=== PATIENT | female | born 1995 ===

== ENCOUNTER → 2019-10-17 | Outpatient (CLI) | payer OTHER | END | disposition home or self-care (01) | LOC: LAB 16:45 → LAB SHORT 16:45 | DX: N91.2 Amenorrhea, unspecified (principal) | CPT/HCPCS: 84702 ==

== ENCOUNTER → 2020-12-04 | Outpatient (CLI) | payer OTHER | END | disposition home or self-care (01) | LOC: LAB 17:40 → LAB SHORT 17:40 | DX: J02.9 Acute pharyngitis, unspecified (principal) | CPT/HCPCS: 87081; 87147 ==

== ENCOUNTER → 2023-04-21 | Outpatient (CLI) | payer OTHER | LOC: LAB SHORT 18:14 | DX: R10.9 Unspecified abdominal pain (principal) | CPT/HCPCS: 84702 ==

== ENCOUNTER 2023-11-30 08:25 | Inpatient (IN) | payer OTHER ==
[2023-11-30] VITALS (31 sets, daily range): BP systolic 91–136; BP diastolic 50–91
[~2023-11-30] VITALS: Ht 185.4 cm; Wt 104.0 kg
[2023-11-30] MEDS ORDERED: Carboprost Tromethamine 250 MCG/ML 1ML Amp IM PRN (08:50)
[2023-11-30] MEDS ORDERED: Lactated Ringer's 1,000 ML IV SCH ×2 (08:50)
[2023-11-30] MEDS ORDERED: Ondansetron HCl 2 MG / ML 2ML Vial IV PRN ×2 (08:50→21:10)
[2023-11-30] MEDS ORDERED: OXYTOCIN/RINGER'S LACTATE 500 ML IV PRN (08:50)
[2023-11-30] MEDS ORDERED: Misoprostol 200 MCG Tab PR PRN (08:50)
[2023-11-30] MEDS ORDERED: FentaNYL 2mcg/ml-Bup 0.1% Epd 250 ML EPI PRN (08:50)
[2023-11-30] MEDS ORDERED: Calcium Carbonate 500 MG Tab Chew PO PRN ×2 (08:50→11:40)
[2023-11-30] MEDS ORDERED: ePHEDrine Sulfate 50 MG/ML 1ML Injection XX PRN (08:50)
[2023-11-30] MEDS ORDERED: Oxytocin 10 Unit / ML Vial IM PRN (08:50)
[2023-11-30] MEDS ORDERED: Methylergonovine Maleate 0.2MG / ML 1ML Amp IM PRN (08:50)
[2023-11-30] MEDS ORDERED: Misoprostol 200 MCG Tab BC PRN (08:50)
[2023-11-30] MEDS ORDERED: Lactated Ringer's 1,000 ML IV PRN ×3 (08:50→09:00)
[2023-11-30] MEDS ORDERED: Acetaminophen 500 MG Tab PO PRN (08:50)
[2023-11-30] MEDS ORDERED: Tranexamic Acid 100 ML IV SCH (08:55)
[2023-11-30] MEDS ORDERED: SERT20L (09:16)
[2023-11-30] MEDS ORDERED: PRENATAL TABLE1 EAC2 PO (09:16)
[2023-11-30] MEDS ORDERED: Misoprostol 25 MCG Tab PO SCH (10:00)
[2023-11-30 10:40] LABS: BASOPHILS ABSOLUTE AUTO 0.05 K/mm3 (0.00-0.23); BASOPHILS PERCENT AUTO 0 % (0-2); EOSINOPHILS ABSOLUTE AUTO 0.17 K/mm3 (0.00-0.68); EOSINOPHILS PERCENT AUTO 2 % (0-6); Hematocrit 31.7 % (33.0-51.0); Hemoglobin 10.1 g/dL (11.5-16.0); IMMATURE GRAN ABSOLUTE AUTO 0.16 K/mm3 (0.00-0.10); IMMATURE GRAN PERCENT AUTO 1 % (0-1); LYMPHOCYTES ABSOLUTE AUTO 1.74 K/mm3 (0.84-5.20); LYMPHOCYTES PERCENT AUTO 15 % (21-46); MONOCYTES ABSOLUTE AUTO 1.22 K/mm3 (0.16-1.47); MONOCYTES PERCENT AUTO 11 % (4-13); Mean Corpuscular HGB Conc 31.9 g/dL (31.5-36.5); Mean Corpuscular Volume 82 fL (80-100); Mean Platelet Volume 10.1 fL (9.1-12.4); NEUTROPHILS ABSOLUTE AUTO 7.99 K/mm3 (1.96-9.15); NEUTROPHILS PERCENT AUTO 71 % (41-73); Platelet Count 224 K/mm3 (150-400); RDW Coefficient Variation 14.2 % (11.7-14.2); RDW Standard Deviation 41.2 fL (35.1-46.3); Red Blood Cell Count 3.88 M/mm3 (3.80-5.20); White Blood Cell Count 11.33 K/mm3 (4.00-11.30)
[2023-11-30] MEDS ORDERED: FentaNYL Citrate 50 MCG/ML 2 ML Injection IV PRN (11:35)
[2023-11-30] MEDS ORDERED: Penicillin G Potassium 5,000,000 UNITS in NS 250 ML IV SCH (17:00)
[2023-11-30] MEDS ORDERED: OXYTOCIN/RINGER'S LACTATE 500 ML IV SCH (17:55)
[2023-11-30] MEDS ORDERED: Omeprazole 20 MG CapCR PO PRN (20:30)
[2023-11-30] MEDS ORDERED: Penicillin G Potassium 2,500,000 UNITS in Dextrose 5% 100 ML IV SCH (21:00)
[2023-11-30] MEDS ORDERED: ePHEDrine Sulfate 50 MG/ML 1ML Injection IV PRN (21:10)
[2023-11-30] MEDS ORDERED: DiphenhydrAMINE HCl 50 MG/ML 1ML Vial IV PRN (21:10)
[2023-11-30] MEDS ORDERED: Naloxone HCl 0.4MG / ML 1ML Vial IV PRN (21:10)
[2023-11-30] MEDS ORDERED: Famotidine 10 MG/ML 2ML Vial IV PRN (22:25)
[2023-12-01] VITALS (17 sets, daily range): BP systolic 98–125; BP diastolic 54–82
[2023-12-01] MEDS ORDERED: Lactated Ringer's 1,000 ML IV SCH ×2 (04:15→09:00)
[2023-12-01] MEDS ORDERED: Acetaminophen 325 MG TABLET PO PRN (08:50)
[2023-12-01] MEDS ORDERED: Benzocaine Topical Anesthetic Spray 60GM TOP PRN (08:50)
[2023-12-01] MEDS ORDERED: Witch Hazel/Glycerin PADS TOP PRN (08:55)
[2023-12-01] MEDS ORDERED: FLU VACC TS2024-25(6MOS UP)/PF 45 MCG/0.5 ML SYRINGE IM SCH (08:55)
[2023-12-01] MEDS ORDERED: Docusate Sodium 100 MG Cap PO PRN (08:55)
[2023-12-01] MEDS ORDERED: Ibuprofen 400 MG Tab PO PRN (08:55)
[2023-12-01] MEDS ORDERED: Lanolin Cream TOP PRN (08:55)
[2023-12-01] MEDS ORDERED: OxyCODONE 5 mg/Acetamin 325 mg TABLET PO PRN (08:55)
[2023-12-01] MEDS ORDERED: Ketorolac Tromethamine 30mg Vial IV PRN (08:55)
[2023-12-01] MEDS ORDERED: Oxytocin 10 Unit / ML Vial IM ONE (09:00)
[2023-12-01] MEDS ORDERED: OXYTOCIN/RINGER'S LACTATE 500 ML IV SCH (09:00)
[2023-12-01] MEDS ORDERED: Misoprostol 200 MCG Tab PR PRN (09:00)
[2023-12-01] MEDS ORDERED: Methylergonovine Maleate 0.2MG / ML 1ML Amp IM PRN (09:00)
[2023-12-01] MEDS ORDERED: Prenatal Vit/FE Fumarate/FA 1 Tab PO SCH (09:00)
--- NOTE | 2023-12-01 11:24 | NUR ---
Up to BR. Voided large amt, pads changed. Right leg still numb, pt advised to call prior to getting up next time. did not shower.
--- NOTE | 2023-12-01 13:43 | NUR ---
pt up in shower, independently. Ice diaper given. Report to John Juarez RN.
--- NOTE | 2023-12-01 18:38 | NUR ---
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
[2023-12-02 00:42] VITALS: BP 117/58
[2023-12-02 05:42] VITALS: BP 117/64
[2023-12-02 05:55] LABS: BASOPHILS ABSOLUTE AUTO 0.04 K/mm3 (0.00-0.23); BASOPHILS PERCENT AUTO 0 % (0-2); EOSINOPHILS ABSOLUTE AUTO 0.23 K/mm3 (0.00-0.68); EOSINOPHILS PERCENT AUTO 2 % (0-6); Hematocrit 29.6 % (33.0-51.0); Hemoglobin 9.3 g/dL (11.5-16.0); IMMATURE GRAN ABSOLUTE AUTO 0.17 K/mm3 (0.00-0.10); IMMATURE GRAN PERCENT AUTO 1 % (0-1); LYMPHOCYTES ABSOLUTE AUTO 1.72 K/mm3 (0.84-5.20); LYMPHOCYTES PERCENT AUTO 14 % (21-46); MONOCYTES ABSOLUTE AUTO 1.22 K/mm3 (0.16-1.47); MONOCYTES PERCENT AUTO 10 % (4-13); Mean Corpuscular HGB Conc 31.4 g/dL (31.5-36.5); Mean Corpuscular Volume 83 fL (80-100); Mean Platelet Volume 9.8 fL (9.1-12.4); NEUTROPHILS ABSOLUTE AUTO 9.21 K/mm3 (1.96-9.15); NEUTROPHILS PERCENT AUTO 73 % (41-73); Platelet Count 173 K/mm3 (150-400); RDW Coefficient Variation 14.3 % (11.7-14.2); Red Blood Cell Count 3.58 M/mm3 (3.80-5.20); White Blood Cell Count 12.59 K/mm3 (4.00-11.30)
[2023-12-02 08:50] VITALS: BP 121/74
== END 2023-12-02 10:26 | disposition home or self-care (01) | DRG 807 ==
LOC: OBS 08:25 → BC 08:44
PROVIDERS: Family Medicine; ADMIT Advanced Practice Midwife
PROC: 10E0XZZ Delivery of Products of Conception, External Approach (ICD-10-PCS; principal; 2023-12-01)
PROC: 0UQMXZZ Repair Vulva, External Approach (ICD-10-PCS; 2023-12-01)
PROC: 3E0R3BZ Introduction of Anesthetic Agent into Spinal Canal, Percutaneous Approach (ICD-10-PCS; 2023-12-01)
PROC: 00HU33Z Insertion of Infusion Device into Spinal Canal, Percutaneous Approach (ICD-10-PCS; 2023-12-01)
PROC: 10H07YZ Insertion of Other Device into Products of Conception, Via Natural or Artificial Opening (ICD-10-PCS; 2023-12-01)
DX: O42.12 Full-term premature rupture of membranes, onset of labor more than 24 hours following rupture (principal); Z37.0 Single live birth; O48.0 Post-term pregnancy; Z3A.40 40 weeks gestation of pregnancy; O99.344 Other mental disorders complicating childbirth; O69.81X0 Labor and delivery complicated by cord around neck, without compression, not applicable or unspecified; O70.0 First degree perineal laceration during delivery
CPT/HCPCS: 36415; 51702; 59025; 85025; 86850; 86900; 86901; 86920; 99214; A9270; J1885; J2405; J2540; J2590; J3010; J7050; J7120

== ENCOUNTER → 2024-05-20 | Outpatient (CLI) | payer OTHER ==
[~2024-05-20] MED LIST: PRENATAL TABLE1 EAC2 PO; SERT20L
[2024-05-20 17:00] LABS: Bacterial Vaginosis PCR Negative (NEGATIVE); Candida Group, PCR NOT DETECTED (NOT DETECT); Candida glabrata-krusei, PCR NOT DETECTED (NOT DETECT)
== END ==
LOC: LAB 14:11 → LAB SHORT 14:11
PROVIDERS: Physician Assistant Medical
DX: N94.819 Vulvodynia, unspecified (principal)
CPT/HCPCS: 81515

== ENCOUNTER → 2024-05-22 | Outpatient (CLI) | payer OTHER ==
[2024-05-22 16:06] LABS: Chlamydia Trachomatis Vaginal NOT DETECTED (NOT DETECT); Neisseria Gonorrhoea Vaginal NOT DETECTED (NOT DETECT)
[2024-05-26 09:35] LABS: HSV 1 SUBTYPE BY PCR Detected; HSV 2 SUBTYPE BY PCR Not Detected; HSV SUBTYPE SOURCE VAG
== END | disposition home or self-care (01) ==
LOC: LAB 10:54 → LAB SHORT 10:54
PROVIDERS: Emergency Medicine
DX: N89.8 Other specified noninflammatory disorders of vagina (principal); N94.9 Unspecified condition associated with female genital organs and menstrual cycle
CPT/HCPCS: 87491; 87529; 87591